=== PATIENT | male | born 1990 | race Caucasian/White ===

== ENCOUNTER 2025-07-31 07:20 | Day surgery (SDC) | payer OTHER ==
[~2025-07-31] VITALS: Ht 175.3 cm; Wt 93.7 kg
[~2025-07-31 07:20] MED LIST: BUSP10TA PO; CETI10CH PO; LEXA1TAB2 PO; VENTAER INH
[2025-07-31] MEDS ORDERED: LR 1,000 ML IV SCH ×2 (07:55→10:15)
[2025-07-31] MEDS: ceFAZolin SOD 2 GM IV ONCE IV ONE (08:46)
[2025-07-31] MEDS ORDERED: LIDOCAINE 2% 100 MG/5 ML SDV (FOR ANES.) As Ordered ONE (08:55)
[2025-07-31] MEDS ORDERED: MIDAZOLAM INJ 2 MG/2 ML VIAL As Ordered ONE (08:55)
[2025-07-31] MEDS ORDERED: dexAMETHasone 4 MG/ML 1 ML VIAL As Ordered ONE (08:55)
[2025-07-31] MEDS ORDERED: ONDANSETRON 4MG/2ML VIAL As Ordered ONE (08:55)
[2025-07-31] MEDS ORDERED: KETOROLAC 30 MG/ML 1 ML VIAL As Ordered ONE (08:55)
[2025-07-31] MEDS ORDERED: ACETAMINOPHEN 1000MG/100ML IV BAG As Ordered ONE (08:56)
[2025-07-31] MEDS ORDERED: HYDROMORPHONE HCL 0.5 MG/0.5 ML SYRINGE IV PRN (10:15)
[2025-07-31] MEDS ORDERED: PERC5TAB12 PO (10:25)
[2025-07-31] MEDS: ONDANSETRON 4MG/2ML VIAL IV PRN (10:38)
[2025-07-31 11:10] VITALS: BP 127/77; TEMP 97.9; O2SAT 99
== END 2025-07-31 11:20 | disposition home or self-care (01) ==
LOC: M SDC 07:20
PROVIDERS: ATTEND Orthopaedic Surgery Hand Surgery
DX: M25.641 Stiffness of right hand, not elsewhere classified (principal); J45.909 Unspecified asthma, uncomplicated; Z79.899 Other long term (current) drug therapy; Z91.013 Allergy to seafood
CPT/HCPCS: 26445; 26525; J0131; J0665; J0688; J1100; J1885; J2250; J2405; J3010

== ENCOUNTER → 2025-08-15 | Outpatient (CLI) | payer OTHER ==
[~2025-08-15] MED LIST changes: +PERC5TAB12 PO
== END ==
LOC: M SOG 07:45
PROVIDERS: ATTEND Physician Assistant
DX: M25.641 Stiffness of right hand, not elsewhere classified (principal)